=== PATIENT | female | born 1985 | race Caucasian/White ===

== ENCOUNTER → 2018-04-19 | Outpatient (CLI) | payer MEDICAID | END | disposition home or self-care (01) | LOC: CFH 14:42 | PROVIDERS: ATTEND Family Medicine | DX: G93.89 Other specified disorders of brain (principal); M25.852 Other specified joint disorders, left hip; R90.82 White matter disease, unspecified; D25.9 Leiomyoma of uterus, unspecified; M89.9 Disorder of bone, unspecified | CPT/HCPCS: 70551 ==